=== PATIENT | female | born 1995 | race Hispanic/Latino ===

== ENCOUNTER 2017-07-11 12:12 | Emergency (ER) | payer MEDICAID, OTHER ==
[2017-07-11 13:13] LABS: BASOPHILS % (AUTO) 0.3 % (0.0-5.0); EOSINOPHILS % (AUTO) 0.9 % (0.0-8.0); HEMATOCRIT 35.1 % (36-48); LYMPHOCYTES % (AUTO) 24.3 % (21.0-51.0); MEAN CORPUSCULAR HEMOGLOBIN 28.8 pg (27.0-33.0); MEAN CORPUSCULAR HGB CONC 34.6 g/dL (32.0-36.0); MEAN CORPUSCULAR VOLUME 83.2 fL (80-100); NEUTROPHILS % (AUTO) 71.5 % (40.0-77.0); PLATELET COUNT (AUTO) 256 K/uL (130-400); RED BLOOD CELL COUNT(AUTO) 4.22 MIL/uL (4.00-5.50); RED CELL DISTRIBUTION WIDTH 13.6 % (11.0-15.5); WHITE BLOOD COUNT (AUTO) 12.3 K/uL (4.8-10.8)
[2017-07-11 13:21] LABS: CREATININE 0.7 mg/dL (0.5-1.5); POTASSIUM 3.3 mmol/L (3.5-5.1)
[2017-07-11 13:51] LABS: APPEARANCE,URINE Clear (CLEAR); BILIRUBIN,URINE Negative (NEGATIVE); COLOR,URINE Yellow (YELLOW); GLUCOSE, URINE (UA) Negative (NEGATIVE); KETONES,URINE Negative (NEGATIVE); LEUKOCYTE ESTERASE ,URINE Negative (NEGATIVE); NITRATE,URINE Negative (NEGATIVE); OCCULT BLOOD,URINE Small (NEGATIVE); PROTEIN,URINE Negative (NEGATIVE); UROBILINOGEN,URINE 0.2 mg/dL (0.2-1.0)
[2017-07-11 14:12] LABS: BACTERIA,URINE None Seen /HPF (None Seen); RBC,URINE 0-1 /HPF (0-1); WBC,URINE None Seen /HPF (0-1)
== END 2017-07-11 14:51 | disposition home or self-care (01) ==
LOC: EDH 12:12
DX: O20.0 Threatened abortion (principal); Z3A.11 11 weeks gestation of pregnancy; Z79.899 Other long term (current) drug therapy
CPT/HCPCS: 36415; 76801; 80048; 81001; 84702; 85025; 86900; 86901

== ENCOUNTER 2018-09-08 18:44 | Emergency (ER) | payer MEDICAID, OTHER ==
[~2018-09-08 18:44] MED LIST: PNV1TABL17 PO
[2018-09-08] MEDS ORDERED: TETANUS/DIPHTHERIA TOXOID [ADULT] 0.5 ML VIAL IM ONE (20:42)
== END 2018-09-08 21:33 | disposition home or self-care (01) ==
LOC: EDH 18:44
DX: S51.811A Laceration without foreign body of right forearm, initial encounter (principal); W25.XXXA Contact with sharp glass, initial encounter; Y93.89 Activity, other specified; Y92.89 Other specified places as the place of occurrence of the external cause; Y99.8 Other external cause status
CPT/HCPCS: 73090; 90471; 90714

== ENCOUNTER 2020-11-23 19:25 | Emergency (ER) | payer MEDICAID ==
[~2020-11-23] VITALS: Ht 157.5 cm; Wt 99.8 kg
[2020-11-23] MEDS ORDERED: ACYC200C24 PO (19:56)
[2020-11-23] MEDS ORDERED: PRED20TA3 PO (19:56)
[2020-11-23] MEDS ORDERED: ACYCLOVIR 200 MG CAPSULE PO SCH (20:00)
[2020-11-23] MEDS ORDERED: PREDNISONE 20 MG TABLET PO ONE (20:00)
[2020-11-23 20:14] VITALS: BP 120/75
== END 2020-11-23 20:18 | disposition home or self-care (01) ==
LOC: EDH 19:25
DX: O99.352 Diseases of the nervous system complicating pregnancy, second trimester (principal); G51.0 Bell's palsy; Z3A.24 24 weeks gestation of pregnancy; Z79.899 Other long term (current) drug therapy